=== PATIENT | male | born 1990 | race Hispanic/Latino ===

== ENCOUNTER → 2019-01-29 16:22 | Outpatient (CLI) | payer OTHER, SELFPAY ==
--- NOTE | 2019-01-29 | DI.MRI.S_ITS ---
PROCEDURE: MR CERVICAL SPINE WO CON INDICATIONS: Paresthesia of skin. TECHNIQUE: Noncontrast sagittal T1 spin echo and T2 fast spin echo, sagittal STIR, foraminal oblique sagittal T2 fast spin echo, and axial gradient echo or T2 fast spin echo through the cervical spine. COMPARISON: None. FINDINGS: Image quality: Excellent. Alignment and Curvature: There is normal bony alignment. Bone Marrow: Marrow demonstrates normal overall signal. Spinal Cord: Visualized spinal cord has normal size and signal. No cerebellar tonsillar herniation. Paraspinous Soft Tissues: No paravertebral masses. Prevertebral soft tissues are normal in thickness. C2-C3: Normal appearance. C3-C4: The disc height is well-preserved. Loss of disc signal is seen at this level. Mild disc osteophyte complex is seen, with mild central canal narrowing. No significant neural foraminal narrowing is seen at this level. C4-C5: The disc height is well-preserved. Loss of disc signal is seen at this level. Mild disc osteophyte complex is seen at this level, with mild central canal narrowing. No significant neural foraminal narrowing. C5-C6: Normal appearance. C6-C7: Normal appearance. C7-T1: Normal appearance. 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 Dictated by: Devin Lees M.D. on 01/29/2019 at 17:10 Approved by: Devin Lees M.D. on 01/29/2019 at 17:12
== END ==
PROVIDERS: Visit Provider Registered Nurse Diabetes Educator
DX: R20.2 Paresthesia of skin (principal); M47.812 Spondylosis without myelopathy or radiculopathy, cervical region
CPT/HCPCS: 72141